=== PATIENT | female | born 1955 | race Caucasian/White ===

== ENCOUNTER 2018-12-12 11:43 | Emergency (ER) | payer MEDICARE ==
--- NOTE | 2018-12-12 12:21 | Emergency Department Record ---
History of Present Illness - General Chief Complaint: Hypertension Stated Complaint: HIGH BP/PAIN IN HEAD Time Seen by Provider: 12/12/18 12:14 Source: Patient Mode of Arrival: Ambulatory Limitations: No limitations - History of Present Illness Initial Comments: 62 yo female presents with a concern about her blood pressure and a headache. The blood pressure this morning was 160/90. She normally runs closer to 120/80. At 10am she had a few seconds of sharp pain on the top of her head. The pain only lasted about 2 seconds then completely resolved. It has recurred a few times. It is not severe. She feels a pressure behind her eyes. The scalp is not sensitive to touch. No vision loss, speech changes, hearing changes, difficulty with finding words, coordination trouble, walking trouble, numbness or weakness. She called her PCP to be seen but was unable to get an appointment. She currently has no pain. BP on presentation was 130/70. MD Complaint: Other (elevated blood pressure) -: Hour(s) Timing: Awoke with symptoms, Intermittent Description: Other History of Same: Yes History of Trauma: No Severity: Mild Improves With: Nothing Worsens With: Nothing Associated Symptoms: Denies other symptoms - Silvia Coma Scale Eye Response: (4) Open spontaneously Motor Response: (6) Obeys commands Verbal Response: (5) Oriented Silvia Total: 15 - Symptoms of Stroke Onset of Symptoms Date: 12/12/18 Onset of Symptoms Time: 09:15 Baseline State: Baseline State - Related Data Home Medications Medication Instructions Recorded Confirmed Last Taken Aspirin [Adult Aspirin Regimen] 81 mg PO 12/12/18 12/11/18 B-Complex with Vitamin C 1 each PO 12/12/18 12/11/18 [B-Complex Plus Vitamin C] Bupropion HCl [Wellbutrin Xl] 12/12/18 12/11/18 Cholecalciferol (Vitamin D3) 5,000 unit PO 12/12/18 12/11/18 [Vitamin D3] Diltiazem HCl [Cardizem Cd] 180 mg PO 12/12/18 12/11/18 Escitalopram Oxalate [Lexapro] 20 mg PO 12/12/18 12/11/18 Pantoprazole Sodium [Protonix] 20 mg PO 12/12/18 12/11/18 Allergies Allergy/AdvReac Type Severity Reaction Status Date / Time indomethacin [From Indocin] Allergy DIZZINESS Verified 12/12/18 12:01 indomethacin sodium Allergy DIZZINESS Verified 12/12/18 12:01 [From Indocin] latex Allergy RASH Verified 12/12/18 12:01 Travel Screening - Travel/Exposure Within Last 30 Days Have you traveled within the last 30 days?: No Review of Systems Constitutional: Denies: Chills, Fever, Malaise, Weakness Eyes: Denies: Eye discharge, Eye pain, Photophobia, Vision change ENT: Denies: Congestion, Throat pain Respiratory: Denies: Cough, Dyspnea, Hemoptysis, Wheezes Cardiovascular: Reports: Other (Hx of Afib, no recent palpitations). Denies: C hest pain, Palpitations, Syncope Endocrine: Denies: Fatigue, Polydipsia, Polyuria Gastrointestinal: Denies: Abdominal pain, Diarrhea, Nausea, Vomiting Genitourinary: Denies: Dysuria, Urgency Musculoskeletal: Denies: Arthralgia, Back pain, Joint swelling, Myalgia Skin: Denies: Bruising, Change in color, Rash Neurological: Reports: Headache. Denies: Abnormal gait, Confusion, Numbness, Paresthesias, Seizure, Tingling, Tremors, Vertigo, Weakness Psychiatric: Denies: Anxiety Hematological/Lymphatic: Denies: Easy bleeding, Easy bruising Past Medical History - SOCIAL HISTORY Smoking Status: Former smoker Alcohol Use: None Drug Use: None - RESPIRATORY Hx Respiratory Disorders: Yes Hx Dyspnea: Yes (exertional) - CARDIOVASCULAR Hx Cardio Disorders: Yes Hx Abnormal EKG: Yes (afib x 2 episodes) Hx Hypertension: Yes (controlled with meds) Hx Irregular Heartbeat: Yes (hx A-fib-none in 2 years) Hx Palpitations: Yes (rare) Comment:: Has had prior stress test and echo-? R/T afib - NEURO Hx Neuro Disorders: Yes Hx Headaches: Yes (daily, helped with chiropractor) - GI Hx GI Disorders: Yes Hx Reflux: Yes (prilosec) Hx Wt Loss/Wt Gain: Yes (15# wt gain due to inactivity from knee pain) - ENDOCRINE Hx Endocrine Disorders: No - MUSCULOSKELETAL Hx Musculoskeletal Disorders: Yes Hx Arthritis: Yes (left knee osteoarthritis) - PSYCH Hx Psych Problems: Yes Hx Anxiety: Yes (Controlled with Lexapro) Hx Suicide Attempt: No (Ideation in 1981) - HEMATOLOGY/ONCOLOGY Hx Hematology/Oncology Disorders: No Family Medical History Any Significant Family History?: Yes Hx Alcohol Use: Children Hx Diabetes: Brother/Sister Hx Heart Disease: Father, Mother, Brother/Sister Hx Resp Disorders: Father, Brother/Sister Physical Exam - General General Appearance: Alert, Oriented x3, Cooperative, No acute distress Limitations: No limitations - Head Head exam: Atraumatic. negative: Normal inspection - Eye Eye exam: Normal appearance, PERRL, EOMI. negative: Conjunctival injection, Nystagmus, Periorbital swelling, Scleral icterus Pupils: Normal accommodation. negative: Irregular, Unequal - ENT ENT exam: Normal exam, Mucous membranes moist, Normal orophraynx, TM's normal bilaterally Ear exam: Normal external inspection Nasal Exam: Normal inspection Mouth exam: Normal external inspection, Tongue normal. negative: Muffled voice Teeth exam: Normal inspection Throat exam: Normal inspection - Neck Neck exam: Normal inspection, Full ROM. negative: Lymphadenopathy - Respiratory Respiratory exam: Normal lung sounds bilaterally. negative: Respiratory distress, Rhonchi, Stridor, Wheezes - Cardiovascular Cardiovascular Exam: Regular rate, Normal rhythm, Normal heart sounds Peripheral Pulses: 2+: Radial (R), Radial (L) - GI/Abdominal GI/Abdominal exam: Soft. negative: Tenderness - Rectal Rectal exam: Deferred - exam: Deferred - Extremities Extremities exam: Normal inspection. negative: Pedal edema, Tenderness - Back Back exam: Denies: CVA tenderness (R), CVA tenderness (L), Tenderness - Neurological Neurological exam: Alert, CN II-XII intact, Normal gait, Oriented X3, Reflexes normal, Other (No PND, Normal FTN, Normal ARACELIS, No ataxia, Normal tracking, Normal gait). negative: Abnormal gait, Altered, Motor sensory deficit - Psychiatric Psychiatric exam: Normal affect, Normal mood. negative: Agitated, Anxious - Skin Skin exam: Dry, Intact, Normal color, Warm Description of rash: Other (Non tender scalp) Course Vital Signs 12/12/18 11:55 Temperature 98.2 F Pulse Rate 69 Respiratory 18 Rate Blood Pressure 131/70 Pulse Ox 94 L - Reevaluation(s) Reevaluation #1: 12/12/18 13:02 The CBC and BMP were reviewed No acute abnormality 12/12/18 13:07 The HCT is normal The symptoms are mild and fleeting with a normal neurologic examination as tested Her BP is not is a significantly elevated state DC home with close instructions for follow up and reasons to return to the ED Medical Decision Making - Lab Data Result diagrams: 12/12/18 12:40 12/12/18 12:40 Disposition Disposition: Discharge Clinical Impression: Hypertension, Headache Disposition: Home, Self-Care Condition: (1) Good Instructions: Hypertension (ED) Additional Instructions: Call your doctor for close follow up of today's ER visit Review the tests and results with your doctor Return if you have any concerns, new or worsening symptoms Recheck your blood pressure with your doctor in the next week Forms: Patient Portal Access Time of Disposition: 13:10 Quality - Quality Measures Quality Measures: N/A - Blood Pressure Screening Does Patient Have Any of the Following: No Blood Pressure Classification: Pre-Hypertensive BP Reading Systolic Measurement: 131 Diastolic Measurement: 70 Screening for High Blood Pressure: < Pre-Hypertensive BP, F/U Documented > [[id number]] Pre-Hypertensive Follow-up Interventions: Referral to alternative/primary care provider.
[2018-12-12] MEDS ORDERED: ACETAMINOPHEN 500 MG TABLET PO ONE (12:22)
[2018-12-12 12:46] LABS: ABSOLUTE NEUTROPHIL COUNT 3.83; BASO % 1.7 % (0-6); EOS % 2.6 % (0-6); GRAN % 59.8 % (47-80); HEMOGLOBIN 12.6 gm/dl (11.6-16.0); LYMPH % 26.6 % (16-45); MEAN CELL VOLUME 86.9 fl (81-97); MEAN CORPUSCULAR HEMOGLOBIN 26.7 pg (27-33); MEAN CORPUSCULAR HGB CONC 30.7 g/dl (32-36); MEAN PLATELET VOLUME 9.3 fl (7.4-10.4); MONO % 9.3 % (0-9); PLATELET COUNT 400 K/uL (130-400); RED BLOOD COUNT 4.72 M/uL (3.80-5.40); RED CELL DISTRIBUTION WIDTH 14.5 % (11.5-14.5); WHITE BLOOD COUNT W/O DIFF 6.4 K/uL (4.2-12.2)
[2018-12-12 12:55] LABS: BLOOD UREA NITROGEN 12 mg/dL (8-23); CREATININE 0.9 mg/dL (0.5-0.9); EST GLOMERULAR FILTRATION RATE > 60 mL/min
[2018-12-12 12:58] LABS: GLUCOSE,RANDOM 106 mg/dL (74-109)
--- NOTE | 2018-12-15 07:41 | CT SCAN REPORT ---
EXAM: CT OF THE HEAD WITHOUT CONTRAST HISTORY: RIGHT SIDED HEADACHE WITHOUT KNOWN INJURY. TECHNIQUE: Standard CT imaging of the head was obtained without IV contrast. Comparison: None. Hand dominance: Unknown. FINDINGS: Generalized sulcal prominence from generalized volume loss. The ventricles are normal in size. The basal cisterns are maintained. No intracranial hemorrhage or extraaxial fluid collection is identified. No significant mass effect or midline shift. The chandra white matter differentiation is maintained. The paranasal sinuses and mastoid air cells are clear. IMPRESSION: NEGATIVE NONCONTRAST HEAD CT. JOB NUMBER: [id number] MTDD
== END 2018-12-12 13:22 | disposition home or self-care (01) ==
LOC: ER 11:43
DX: I10 Essential (primary) hypertension (principal); R51 Headache; Z87.891 Personal history of nicotine dependence
CPT/HCPCS: 70450; 80048; 85025; 99283; 99284